=== PATIENT | female | born 1985 | race Caucasian/White ===

== ENCOUNTER 2019-12-30 10:10 | Outpatient (CLI) | payer MEDICAID, SELFPAY ==
[2019-12-30 10:38] LABS: HCT 36.2 % (36.0-46.0); Mean Corp. HGB Concentration 33.1 g/dL (32.0-36.0); Mean Corpuscular Volume 90.5 fL (80-95); Mean Platelet Volume 8.8 fL (8.0-11.0); Platelet Count 305 x1000/uL (130-400); RBC Distribution Width 12.2 % (11.7-14.6); White Blood Cell Count 6.72 k/cumm (4.4-10.8)
[2019-12-30 11:48] LABS: ALT 18 U/L (14-59); AST 7 U/L (15-37); Alkaline Phosphatase 46 U/L (46-116); Anion Gap 10.9 mmol/L (3-11); BUN 16 mg/dL (7-18); Bilirubin, Total 0.7 mg/dL (0.2-1.0); CO2 27.1 mmol/L (21.0-32.0); CREATININE 0.92 mg/dL (0.55-1.02); Calcium 8.9 mg/dL (8.5-10.1); Chloride 101 mmol/L (98-107); Glucose 116 mg/dL (74-106); Sodium 139 mmol/L (136-145); TSH (W/Ref FT4) 2.19 uIU/mL (0.36-3.74); Total Protein 7.3 g/dL (6.4-8.2)
== END 2019-12-30 10:30 ==
PROVIDERS: PCP Nurse Practitioner; Visit Provider Nurse Practitioner
DX: R53.83 Other fatigue (principal); I10 Essential (primary) hypertension; Z83.49 Family history of other endocrine, nutritional and metabolic diseases
CPT/HCPCS: 36415; 80053; 85027; 84443

== ENCOUNTER 2020-08-31 02:13 | Outpatient (CLI) | payer MEDICAID, SELFPAY ==
[2020-08-31 09:19] LABS: Abs Immature Grans 0.01 10^3/uL (0.0-0.06); Absolute Basophil Count 0.04 10^3/uL (0.0-0.2); Absolute Eosinophil Count 0.06 10^3/uL (0.0-0.7); Absolute Lymphocyte Count 1.94 10^3/uL (1.2-3.4); Absolute Monocyte Count 0.46 10^3/uL (0.1-0.8); Absolute Neutrophil Count 3.27 10^3/uL (1.2-6.7); Basophils % 0.7; HCT 39.3 % (36.0-46.0); HGB 13.2 g/dL (11.2-15.7); Immature Grans % 0.2; Lymphocytes % 33.6; MCH 30.1 pg (27.0-33.0); MCHC 33.6 % (32.0-36.0); MCV 89.5 fL (80-95); Neutrophils % 56.5; Nucleated RBC 0 %; Platelet Count 252 10^3/uL (130-400); RBC 4.39 10^6/uL (3.93-5.22); RDW-SD 39.5 fL; WBC 5.78 10^3/uL (4.4-10.8)
[2020-08-31 09:56] LABS: Hemoglobin A1C 5.3 % (<5.7)
[2020-08-31 10:32] LABS: Vitamin D 25 Total 62.3 ng/ml (30-100)
[2020-08-31 10:40] LABS: ALT 75 U/L (14-59); AST 24 U/L (15-37); Albumin 4.5 g/dL (3.4-5.0); Alkaline Phosphatase 57 U/L (46-116); Anion Gap 6.2 mmol/L (3-11); BUN 11 mg/dL (7-18); Bilirubin, Total 1.1 mg/dL (0.2-1.0); CO2 30.8 mmol/L (21.0-32.0); CREATININE 0.76 mg/dL (0.55-1.02); Calcium 9.1 mg/dL (8.5-10.1); Calculated LDL 55 mg/dL (<100); Chloride 103 mmol/L (98-107); Cholesterol 152 mg/dL (<200); Ferritin 64 ng/mL (8-252); Glucose 100 mg/dL (74-106); HDL Cholesterol 92 mg/dL (40-60); Potassium 4.3 mmol/L (3.5-5.1); Sodium 140 mmol/L (136-145); TSH (W/Ref FT4) 1.69 uIU/mL (0.36-3.74); Total Protein 7.5 g/dL (6.4-8.2); Triglyceride 26 mg/dL (<150); Vitamin B12 780 pg/mL (193-986)
[2020-08-31 10:43] LABS: Folate > 20.0 ng/mL (8.6-20.0)
[2020-08-31 12:17] LABS: Iron 124 ug/dL (50-170); Total Iron Binding Capacity 244 ug/dL (250-450); Transferrin Sat 51 % (15-50)
[2020-09-01 12:59] LABS: Lipoprotein (a) <6 mg/dL (<=30)
[2020-09-03 12:24] LABS: Testosterone, Total 48 ng/dL (8-60)
[2020-09-04 16:29] LABS: Estradiol, Mass Spectrometry 51 pg/mL; Estrone 88 pg/mL
[2020-09-18 12:38] LABS: Dehydroepiandrosterone (DHEA) 3.7 ng/mL
[2020-09-18 12:39] LABS: Progesterone <0.20 ng/mL
[2020-09-18 12:40] LABS: Thyroglobulin Antibody <1.8 IU/mL (<4.0); Thyroperoxidase Antibody <0.3 IU/mL (<9.0)
[2020-09-18 12:43] LABS: Homocysteine 8.3 nmol/mL
[2020-09-18 12:44] LABS: T3,Free 3.5 pg/mL (2.8-4.4)
== END 2020-08-31 02:33 ==
PROVIDERS: PCP Nurse Practitioner; Visit Provider Naturopath
DX: R53.83 Other fatigue (principal); N64.4 Mastodynia; Z13.220 Encounter for screening for lipoid disorders
CPT/HCPCS: 36415; 80053; 80061; 82306; 83090; 83695; 84403; 86376; 82607; 82626; 82670; 82679; 82728; 82746; 83036; 83540; 83550; 84144; 84443; 84481; 85025; 86800

== ENCOUNTER 2020-09-21 03:33 | Outpatient (CLI) | payer MEDICAID, SELFPAY ==
[2020-09-21 15:47] LABS: ALT 80 U/L (14-59); AST 20 U/L (15-37); Albumin 4.3 g/dL (3.4-5.0); Alkaline Phosphatase 64 U/L (46-116); Bilirubin, Direct 0.18 mg/dL (0.00-0.20); Bilirubin, Total 0.7 mg/dL (0.2-1.0); Total Protein 7.3 g/dL (6.4-8.2)
[2020-09-28 16:38] LABS: Specimen WB Whole Blood
== END 2020-09-21 03:53 ==
PROVIDERS: PCP Nurse Practitioner; Visit Provider Naturopath
DX: R74.01 Elevation of levels of liver transaminase levels (principal)
CPT/HCPCS: 36415; 80061; 80076; 82947; 81256

== ENCOUNTER 2022-06-03 02:36 | Outpatient (CLI) | payer MEDICAID, SELFPAY ==
[2022-06-03 08:57] LABS: ALT 48 U/L (14-59); AST 18 U/L (15-37); Albumin 4.2 g/dL (3.4-5.0); Alkaline Phosphatase 61 U/L (46-116); Anion Gap 9.6 mmol/L (3-11); BUN 13 mg/dL (7-18); Bilirubin, Total 1.1 mg/dL (0.2-1.0); CO2 29.4 mmol/L (21.0-32.0); CREATININE 0.7 mg/dL (0.55-1.02); Calcium 8.7 mg/dL (8.5-10.1); Calculated LDL 52 mg/dL (<100); Chloride 103 mmol/L (98-107); Cholesterol 144 mg/dL (<200); Glucose 100 mg/dL (74-106); HDL Cholesterol 87 mg/dL (40-60); Potassium 3.9 mmol/L (3.5-5.1); Sodium 142 mmol/L (136-145); Total Protein 7.7 g/dL (6.4-8.2); Triglyceride 26 mg/dL (<150)
[2022-06-04 09:22] LABS: Hepatitis C Ab w Rflx HCV PCR Negative (Negative)
[2022-06-04 10:16] LABS: HIV-1/2 Ag & Ab Screen Negative (Negative)
== END 2022-06-03 02:37 | disposition home or self-care (01) ==
LOC: LBO 02:36
PROVIDERS: PCP Nurse Practitioner; Visit Provider Nurse Practitioner
DX: R79.89 Other specified abnormal findings of blood chemistry (principal); Z13.220 Encounter for screening for lipoid disorders
CPT/HCPCS: 36415; 80053; 80061; 86803; 87389; 84443

== ENCOUNTER 2022-11-04 14:21 | Outpatient (REF) | payer MEDICAID, SELFPAY ==
[2022-11-06 01:40] LABS: Influenza A RNA Result Negative (Negative); Influenza B RNA Result Negative (Negative); RSV RNA Result Negative (Negative)
[2022-11-06 02:04] LABS: COVID-19 RT-PCR UVMMC Result Negative (Negative)
== END 2022-11-04 14:22 | disposition home or self-care (01) ==
LOC: LBN 14:21
PROVIDERS: PCP Nurse Practitioner; Visit Provider Nurse Practitioner
DX: J02.9 Acute pharyngitis, unspecified (principal); R50.9 Fever, unspecified; Z20.822 Contact with and (suspected) exposure to COVID-19
CPT/HCPCS: 87631; U0003; 87070

== ENCOUNTER 2023-07-08 11:59 | Outpatient (CLI) | payer MEDICAID, SELFPAY ==
[2023-07-10 09:13] LABS: IgA 256 mg/dL (85-499); Interpretation (See Note); Tissue Transglutaminase IgA <1.2 U/mL (<4.0)
[2023-07-10 15:25] LABS: Baker's Yeast, IgE <0.10 kU/L (<0.70); Banana, IgE <0.10 kU/L (<0.70); Barley, IgE <0.10 kU/L (<0.70); Beef IgE <0.10 kU/L (<0.70); Black/White Pepper IgE <0.10 kU/L (<0.70); Broccoli IgE <0.10 kU/L (<0.70); Cacao/Cocoa, IgE <0.10 kU/L (<0.70); Cinnamon, IgE <0.10 kU/L (<0.70); Corn-Food IgE <0.10 kU/L (<0.70); Egg Whole IgE <0.10 kU/L (<0.70); Milk, IgE <0.10 kU/L (<0.70); Onion, IgE <0.10 kU/L (<0.70); Soybean IgE <0.10 kU/L (<0.70); Strawberry, IgE <0.10 kU/L (<0.70); White Potato, IgE <0.10 kU/L (<0.70)
== END 2023-07-08 12:00 | disposition home or self-care (01) ==
LOC: LBO 12:00
PROVIDERS: PCP Nurse Practitioner; Visit Provider Nurse Practitioner
DX: R12 Heartburn (principal); R14.0 Abdominal distension (gaseous)
CPT/HCPCS: 36415; 82784; 83516; 86001; 86003; 84443

== ENCOUNTER 2025-08-23 01:22 | Outpatient (CLI) | payer MEDICAID, SELFPAY ==
[2025-08-23 08:16] LABS: Abs Immature Grans 0.02 10^3/uL (0.0-0.06); HCT 37.6 % (36.0-46.0); HGB 12.4 g/dL (11.2-15.7); Immature Grans % 0.3 %; MCH 29.6 pg (27.0-33.0); MCHC 33.0 % (32.0-36.0); MCV 90 fL (80-95); MPV 8.6 fL (8.0-11.0); Platelet Count 316 10^3/uL (130-400); RBC 4.19 10^6/uL (3.93-5.22); RDW 12.0 % (11.7-14.6); RDW-SD 39.4 fL; WBC 5.82 10^3/uL (4.4-10.8)
[2025-08-23 08:53] LABS: Hemoglobin A1C 5.4 % (<5.7)
[2025-08-23 09:02] LABS: Anion Gap 9.7 mmol/L (3-11); BUN 12 mg/dL (7-18); CO2 28.3 mmol/L (21.0-32.0); Calcium 9.0 mg/dL (8.5-10.1); Chloride 103 mmol/L (98-107); Cholesterol 222 mg/dL (<200); Glucose 106 mg/dL (74-106); HDL Cholesterol 129 mg/dL (>or=50); Potassium 4.1 mmol/L (3.5-5.1); Sodium 141 mmol/L (136-145); TSH (W/Ref FT4) 1.51 uIU/mL (0.36-3.74)
== END 2025-08-23 01:23 | disposition home or self-care (01) ==
LOC: LBO 01:22
DX: Z83.3 Family history of diabetes mellitus (principal); Z00.00 Encounter for general adult medical examination without abnormal findings; Z13.29 Encounter for screening for other suspected endocrine disorder; Z13.220 Encounter for screening for lipoid disorders
CPT/HCPCS: 36415; 80048; 80061; 83036; 84443; 85025